=== PATIENT | female | born 1965 | race Caucasian/White ===

== ENCOUNTER 2023-10-14 07:59 | Emergency (ER) | payer OTHER, SELFPAY ==
--- NOTE | ~2023-10-14 | XR_ITS ---
XR foot RT min 3V DATE: 10/14/2023 08:26 INDICATION: Fall last night. Fifth metatarsal pain. TECHNIQUE: 4 views COMPARISON: None FINDINGS: There is a transverse nondisplaced apparently extra-articular fracture of the base of the f ifth metatarsal bone with overlying soft tissue swelling. No other fracture or dislocation. Slight plantar calcaneal enthesopathy. IMPRESSION: Transverse nondisplaced fracture of the base of the fifth metatarsal bone Reviewed, dictated and finalized at location J. IMPRESSION: Transverse nondisplaced fracture of the base of the fifth metatarsa l bone
[2023-10-14 08:15] VITALS: O2SAT 97
[2023-10-14 08:17] VITALS: BP 93/72
--- NOTE | 2023-10-14 09:02 | ED.GENADULT ---
HPI - General Adult General Chief complaint: Extremity Injury, Lower Stated complaint: R ankle Time Seen by Provider: 10/14/23 08:01 History of Present Illness HPI narrative: 58-year-old female presenting to the emergency department for evaluation for right foot pain. Patient reports last night she tripped over a curb and injured her foot. Patient denies any other pain or injury. Patient states he did not strike her head and had no loss of consciousness. Patient reports increased pain with ambulation and weight-bearing. Related Data Allergies Allergy/AdvReac Type Severity Reaction Status Date / Time Penicillins Allergy Unknown Verified 10/14/23 08:00 Review of Systems Review of Systems: All systems reviewed & are unremarkable except as noted in HPI and below Exam Narrative: APPEARANCE: Well appearing, no pain, no distress, well-nourished. HEAD: normocephalic, atraumatic. EYES: PERRLA/EOMI, conjunctivae clear. NOSE: Normal no drainage EARS:TMS clear with good light reflex. THROAT: Pharynx clear, no exudate. NECK: Supple. No adenopathy, no masses. RESPIRATORY: Airway patent, respirations nonlabored. Clear to auscultation bilaterally, no rales, rhonchi, wheezing. CARDIOVASCULAR: Regular rate and rhythm without murmurs rubs or gallops. ABDOMINAL: Soft, nontender, nondistended, normal bowel sounds MUSCULOSKELETAL: Ecchymosis and tenderness to right lateral foot. NEURO: Alert. Cranial nerves II through XII intact. Grossly intact SKIN: Warm, dry. Normal Color Course Course Emergency Course: Patient did have a nondisplaced fracture of her 5th metatarsal, patient was placed and a splint provided crutches for nonweightbearing. Outpatient follow-up with Orthopedics. Vital Signs Vital signs: Vital Signs Pulse Oximetry 97 10/14/23 08:15 Temperature 98.2 F 10/14/23 09:12 Pulse Rate 67 10/14/23 09:12 Respiratory Rate 18 10/14/23 09:12 Blood Pressure 95/70 L 10/14/23 09:12 Pulse Oximetry 98 10/14/23 09:12 Medical Decision Making MDM Narrative Medical decision making narrative: 58-year-old female presented to the emergency department for evaluation for right foot pain. Patient does have a nondisplaced 5th metatarsal fracture. Patient is neurovascularly intact. Patient was placed in a short-leg splint with crutches for limited weight-bearing. Patient was encouraged of close follow-up with Orthopedics. All questions concerns were addressed. Patient was comfortable the plan for discharge and close follow-up. Differential Diagnosis Differential Diagnosis: Ankle fracture, foot fracture, foot strain, foot contusion Vital Signs Vital Signs: Vital Signs Pulse Oximetry 97 10/14/23 08:15 Temperature 98.2 F 10/14/23 09:12 Pulse Rate 67 10/14/23 09:12 Respiratory Rate 18 10/14/23 09:12 Blood Pressure 95/70 L 10/14/23 09:12 Pulse Oximetry 98 10/14/23 09:12 Imaging Data Radiologist's impression: Impressions Foot X-Ray 10/14/23 08:43 IMPRESSION: Transverse nondisplaced fracture of the base of the fifth metatarsal bone Discharge Plan Discharge Clinical Impression: Closed fracture of fifth metatarsal bone Patient Disposition: Home, Self-Care Condition: Stable Instructions: Antibiotic Form, Crutch Instructions (ED), Foot Fracture in Adults (ED), Splint Care (ED) Additional Instructions: Tylenol and ibuprofen for pain control. Splint care as directed. Crutches for nonweightbearing. Have close follow-up with Orthopedics. If you have any worsening symptoms then please call or return to the emergency department. Follow-up/Referrals: Chano Coats MD [Physician] - PHYSICIAN NOT ON STAFF,NONSTAFF [Primary Care Provider] -
[2023-10-14 09:12] VITALS: BP 95/70; PULSE 67; RESP 18; TEMP 36.8; O2SAT 98
== END 2023-10-14 09:34 | disposition home or self-care (01) ==
PROVIDERS: Emergency Provider Emergency Medicine
DX: S92.354A Nondisplaced fracture of fifth metatarsal bone, right foot, initial encounter for closed fracture (principal); W01.0XXA Fall on same level from slipping, tripping and stumbling without subsequent striking against object, initial encounter
CPT/HCPCS: 29515; 73630; 99284